=== PATIENT | male | born 1965 | race Native Hawaiian/Other Pacific Islander ===

== ENCOUNTER 2019-05-07 05:03 | Inpatient (IN) | payer OTHER ==
[~2019-05-07] VITALS: Ht 185.4 cm; Wt 98.9 kg
[2019-05-07] VITALS (17 sets, daily range): BP systolic 105–152; BP diastolic 48–112
[~2019-05-07 05:03] MED LIST: ACET-1059 PO; CARB1DRO EACHEYE; IBUP-1985 PO; PARO10TA85 PO; VERA120T2 PO; ringers solution, lacted 1,000 ML IV SCH
[2019-05-07] MEDS ORDERED: vancomycin inj 1,500 MG in normal saline 300ml IV soln IV ONE (05:30)
[2019-05-07] MEDS ORDERED: famotidine 20mg tablet PO ONE (05:30)
[2019-05-07] MEDS ORDERED: cefazolin/dext.iso 2gm/50ml 50 ML IV ONE (05:30)
[2019-05-07] MEDS ORDERED: ketorolac trometh. 30mg/ml inj. ONE (06:50)
[2019-05-07] MEDS ORDERED: vancomycin 1,000mg inj ONE (06:50)
[2019-05-07] MEDS ORDERED: morphine 10mg/ml inj. ONE (06:50)
[2019-05-07] MEDS ORDERED: Thrombin (Bovine) 5,000 unit vial TP ONE (06:50)
[2019-05-07] MEDS ORDERED: ceFAZolin 1000mg inj ONE (06:50)
[2019-05-07] MEDS ORDERED: ROPIVAcaine 0.5% (5mg/ml) 30ml vial ONE ×2 (06:50→09:48)
[2019-05-07] MEDS ORDERED: epiNEPHrine 1 mg/ml inj ONE (06:50)
[2019-05-07] MEDS ORDERED: MIDAZolam 5mg/5ml vial ONE (07:12)
[2019-05-07] MEDS ORDERED: fentaNYL /PF 50mcg/ml 5ml ampule ONE (07:12)
[2019-05-07] MEDS ORDERED: propofol inj 20 ML IV ONE (07:13)
[2019-05-07] MEDS ORDERED: ondansetron/PF 4mg/2ml inj ONE (07:13)
[2019-05-07] MEDS ORDERED: LIDOcaine 2% (20mg/ml) 5ml vial ONE (07:13)
[2019-05-07] MEDS ORDERED: morphine 4 MG/ML inj SYRINge IV PRN (07:20)
[2019-05-07] MEDS ORDERED: fentaNYL/PF 50MCG/1 ML 2ML syringe IV PRN ×2 (07:20)
[2019-05-07] MEDS ORDERED: labetalol 20mg/4ml (5mg/ml) syringe IV PRN (07:20)
[2019-05-07] MEDS ORDERED: TRANEXAMIC ACID 1 GM IN NACL,ISO-OS 100 ML IV ONE (07:20)
[2019-05-07] MEDS ORDERED: ondansetron/PF 4mg/2ml inj IV PRN (07:20)
[2019-05-07] MEDS ORDERED: hydrALAZINE 20mg/ml inj. IV PRN (07:20)
[2019-05-07] MEDS ORDERED: ringers solution, lacted 1,000 ML IV SCH (07:20)
[2019-05-07] MEDS ORDERED: morphine 2 MG/ML inj. syringe IV PRN (07:20)
[2019-05-07] MEDS ORDERED: ROPIVAcaine 0.2%/PF PUMP/bolus 550 ML ADDCANAL SCH (07:21)
[2019-05-07] MEDS ORDERED: ROPIVAcaine 0.2% (10 MG/5 ML) BOLUS INJECTION ADDCANAL PRN (07:25)
[2019-05-07] MEDS ORDERED: sevoflurane 250ml liquid IH ONE (07:35)
[2019-05-07] MEDS ORDERED: labetalol 20mg/4ml (5mg/ml) syringe IV ONE (07:35)
[2019-05-07] MEDS ORDERED: dexamethasone sod phosphate 10mg/ml inj ONE (07:35)
[2019-05-07] MEDS ORDERED: calcium chloride 100 MG/1 ML inj IV ONE (08:28)
[2019-05-07] MEDS ORDERED: fentaNYL/PF 50MCG/1 ML 2ML syringe ONE ×2 (09:47→09:58)
[2019-05-07] MEDS ORDERED: hydrALAZINE 20mg/ml inj. IV ONE (09:57)
[2019-05-07] MEDS ORDERED: diphenhydrAMINE 25mg capsule PO PRN ×2 (10:05)
[2019-05-07] MEDS ORDERED: acetaminophen 325mg tablet PO PRN ×2 (10:05→23:24)
[2019-05-07] MEDS ORDERED: HYDROmorphone 1 mg/ml syringe IV PRN (10:05)
[2019-05-07] MEDS ORDERED: HYDROmorphone inj. 0.5 MG/0.5 ML DISP.SYRIN IV PRN (10:05)
[2019-05-07] MEDS ORDERED: magnesium hydroxide 30ml (MOM) UD suspension PO PRN (10:05)
[2019-05-07] MEDS ORDERED: oxyCODONE IR 5mg (immed. release) tablet PO PRN ×2 (10:05)
[2019-05-07] MEDS ORDERED: bisacodyl 10mg suppository rectal RC PRN (10:05)
--- NOTE | 2019-05-07 10:35 | NUR ---
Received from OR via ORTHO BED WITH [facility] , accompanied by Anesthesiologist ELENA and report given by Anesthesiolgist. PATIENT WITH 18G PIV IN RIGHT HAND RUNNING LR AT 100. ORAL AIRWAY IN PLACE. WILL REMOVED ONCE ABLE TO GAURD OWN AIRWAY. LEFT KNEE WRAP PRESENT WITH POWDER PACK PRESENT. PATIENT WITH + DP AND DIANN VAC IN PLACE. NO DRAINAGE PRESENT AT THIS TIME. 10L MASK ON WITH 94% SATURATIONS. Addendum: 05/07/19 at 1048 by Ervin Orellana RN, RN Amended: Links added.
--- NOTE | 2019-05-07 11:07 | NUR ---
RECEIVED REPORT FROM TYESHA RANDALL IN RECOVERY
--- NOTE | 2019-05-07 11:25 | NUR ---
ALL CRITERIA FOR TRANSFER TO THE FLOOR HAS BEEN ACHIEVED. VSS. BED LOW, CALL LIGHT AND VS. SET IN PLACE. RN PRESENT TO ACCEPT CARE. PATIENT RESTING COMFORTABLY IN BED. BELONGINGS SENT WITH PATIENT. DRESSINGS CDI. VSS. 2 BAGS AND A SPC IN 3993B- ACCOMPANIED WITH 2 GAURDS. Addendum: 05/07/19 at 1136 by Ervin Orellana RN, RN Amended: Links added.
--- NOTE | 2019-05-07 11:33 | NUR ---
pt arrived on floor in ortho bed sleepy
[2019-05-07] MEDS: gabapentin 300mg capsule PO SCH ×2 (13:00→20:43)
[2019-05-07] MEDS: ondansetron/PF 4mg/2ml inj IV PRN ×2 (13:22→19:08)
[2019-05-07] MEDS: acetaminophen 325mg tablet PO SCH ×2 (13:29→20:43)
--- NOTE | 2019-05-07 13:30 | NUR ---
scanner on computer not working checked med prior to admin
[2019-05-07] MEDS ORDERED: tranexamic acid inj. 1,000 MG in normal saline 100ml IV soln 100 ML IV ONE (14:00)
[2019-05-07] MEDS: ceFAZolin 1GM/D5W- ADD-VANTAGE 50 ML IV SCH (16:05)
[2019-05-07] MEDS: potassium cl 20mEq in 1/2 NS 1,000 ML IV SCH ×2 (17:29→18:03)
--- NOTE | 2019-05-07 18:12 | NUR ---
gave report to ema puga
[2019-05-07] MEDS ORDERED: polyvinyl alcohol ophthalmic drops 15ml bottle EACHEYE PRN (19:55)
[2019-05-07] MEDS ORDERED: vancomycin/NS 1 GM ADD-VANTAGE 250 ML IV SCH (20:00)
[2019-05-07] MEDS: verapamil SR 120mg (sust. release) tab PO SCH (20:43)
[2019-05-07] MEDS ORDERED: PARoxetine 10mg tablet PO SCH (21:00)
[2019-05-07] MEDS ORDERED: sennosides 8.6mg tablet PO SCH (21:00)
[2019-05-08] MEDS: ceFAZolin 1GM/D5W- ADD-VANTAGE 50 ML IV SCH (00:57)
--- NOTE | 2019-05-08 01:13 | NUR ---
reproted to TYESHA Nunes. pt still reports no pain. full movement and sensation. prefers ice pack on lateral knee. tolerates well
[2019-05-08 02:00] VITALS: BP 135/85
[2019-05-08] MEDS: acetaminophen 325mg tablet PO SCH ×2 (02:18→07:14)
[2019-05-08] MEDS: potassium cl 20mEq in 1/2 NS 1,000 ML IV SCH ×2 (02:18→10:03)
--- NOTE | 2019-05-08 02:57 | NUR ---
I have reviewed and agree with all interventions, assessments performed and documented by Russ ARAMBULA.
[2019-05-08 06:00] VITALS: BP 134/81
[2019-05-08 06:10] LABS: BASOPHILS % (AUTO) 0.1 % (0-1); EOSINOPHILS % (AUTO) 0 % (0-6); HEMATOCRIT 39.4 % (42.0-52.0); HEMOGLOBIN 13.5 g/dl (14.0-17.9); LYMPHOCYTES # (AUTO) 1.3 X10'3 (1.1-4.8); LYMPHOCYTES % (AUTO) 7.4 % (21-51); MEAN CORPUSCULAR HEMOGLOBIN 30.4 PG (27.0-31.0); MEAN CORPUSCULAR HGB CONC 34.2 g/dL (33.0-36.5); MEAN CORPUSCULAR VOLUME 88.8 FL (78-98); MEAN PLATELET VOLUME 9.2 FL (7.4-10.4); MONOCYTES # (AUTO) 1.3 X10'3 (0-0.9); MONOCYTES % (AUTO) 7.2 % (2-12); NEUTROPHILS # (AUTO) 15.2 X10'3 (1.8-7.7); NEUTROPHILS % (AUTO) 85.3 % (42-75); PLATELET COUNT 265 X10'3 (140-440); RED BLOOD COUNT 4.44 X10'6 (4.70-6.10); RED CELL DISTRIBUTION WIDTH 13.3 % (11.5-14.5); WHITE BLOOD COUNT 17.8 X10'3 (4.5-11.0)
--- NOTE | 2019-05-08 06:26 | NUR ---
Problems reprioritized. Patient report given, questions answered & plan of care reviewed with Genoveva ARAMBULA.
--- NOTE | 2019-05-08 06:30 | NUR ---
Patient in room ORTHO 4023. I have received report from [facility] and had the opportunity to ask questions and assume patient care.
--- NOTE | 2019-05-08 06:31 | NUR ---
Patient in room ORTHO 4023. I have received report from Manju ARAMBULA and had the opportunity to ask questions and assume patient care.
[2019-05-08] MEDS: gabapentin 300mg capsule PO SCH (07:12)
[2019-05-08] MEDS: verapamil SR 120mg (sust. release) tab PO SCH (07:14)
[2019-05-08] MEDS ORDERED: enoxaparin 40mg/0.4ml syringe SQ SCH (08:00)
[2019-05-08] MEDS ORDERED: ASPI-1 PO (08:58)
--- NOTE | 2019-05-08 10:50 | NUR ---
Patient wheeled down stairs to be taken back to facility by guards.
[2019-05-08] MEDS ORDERED: celeCOXIB 100mg capsule PO SCH (20:00)
[2019-05-09] MEDS ORDERED: acetaminophen 325mg tablet PO PRN (10:05)
== END 2019-05-08 10:42 | DRG 470 ==
LOC: UNDOADMIN 05:03 → PAS IN 05:03 → EEVIPCON 07:30 → EDSTATUS 07:30 → EDBD 09:45 → EDSTATUS 09:45 → PAS IN 10:03 → ORTHO 4S 11:25 → PAS IN 11:25
PROVIDERS: ADMIT Orthopaedic Surgery; ATTEND Orthopaedic Surgery
PROC: 3E0T3BZ Introduction of Anesthetic Agent into Peripheral Nerves and Plexi, Percutaneous Approach (ICD-10-PCS; 2019-05-07)
PROC: 8E0Y0CZ Robotic Assisted Procedure of Lower Extremity, Open Approach (ICD-10-PCS; 2019-05-07)
PROC: 0SRD069 Replacement of Left Knee Joint with Oxidized Zirconium on Polyethylene Synthetic Substitute, Cemented, Open Approach (ICD-10-PCS; principal; 2019-05-07 07:35)
DX: M17.12 Unilateral primary osteoarthritis, left knee (principal); M25.562 Pain in left knee; D62 Acute posthemorrhagic anemia; G44.009 Cluster headache syndrome, unspecified, not intractable; I10 Essential (primary) hypertension; F41.9 Anxiety disorder, unspecified; Z79.899 Other long term (current) drug therapy
CPT/HCPCS: Z7506; Z7508; 36415; 82948; 85025; 87081; 97110; 97116; 97161; 97530; A4215; A6454; A7000; C1713; C1758; C1776; G0378; J0171; J0360; J0690; J1100; J1650; J1885; J2001; J2250; J2270; J2405; J2704; J2795; J3010; J3370; J3480; J3490; J7120